=== PATIENT | female | born 1975 | race Caucasian/White ===

== ENCOUNTER 2020-06-16 16:08 | Outpatient (CLI) | payer BC, SELFPAY ==
[2020-06-16 17:17] LABS: Estmated Average Glucose 111; Hemoglobin A1C 5.5 % (4.0-6.0)
[2020-06-16 17:42] LABS: Chol HDL Ratio 4.57 mg/dL (0.0-4.40); Cholesterol 192 mg/dL (0-200); HDL Cholesterol 42 mg/dL (60-100); LDL Cholesterol Calculated 113 mg/dL (50-129); LDL HDL Ratio 2.69 RATIO (0.00-3.22); Thyroid Stimulating Hormone 1.25 uIU/mL (0.27-4.20); Triglycerides 187 mg/dL (0-150)
== END 2020-06-16 16:09 | disposition home or self-care (01) ==
LOC: LAB 16:13
PROVIDERS: Visit Provider Nurse Practitioner Family
DX: Z13.1 Encounter for screening for diabetes mellitus (principal); Z13.6 Encounter for screening for cardiovascular disorders; F41.1 Generalized anxiety disorder
CPT/HCPCS: 80061; 83036; 84443

== ENCOUNTER → 2020-09-23 11:35 | Outpatient (BNVA) | payer SELFPAY | PROVIDERS: Visit Provider Nurse Practitioner Women's Health | DX: Z12.39 Encounter for other screening for malignant neoplasm of breast (principal); Z30.49 Encounter for surveillance of other contraceptives | CPT/HCPCS: 88175 ==

== ENCOUNTER 2020-11-04 09:17 | Outpatient (CLI) | payer OTHER, SELFPAY ==
--- NOTE | 2020-11-04 09:30 | MM_ITS ---
WS: [id number] BILATERAL DIGITAL SCREENING MAMMOGRAPHY WITH CAD CLINICAL INFORMATION: Z12.39 - Encounter for other screening for malignant neoplasm of breast HISTORY: Screening mammogram. No current complaints. COMPARISON: June 12, 2019 TECHNIQUE: Bilateral CC and MLO views. FINDINGS: Scattered fibroglandular densities bilaterally. No suspicious focal mass, asymmetry, calcifications, or architectural distortion. No evidence of malignancy. A few punctate calcifications. MM/[place] [id number] IMPRESSION: BI-RADS: 2-Benign FOLLOW UP: 1 Year Follow-up Recommend return to annual screening mammography.
== END 2020-11-04 09:18 | disposition home or self-care (01) ==
LOC: RADSHAW 09:18
PROVIDERS: Visit Provider Nurse Practitioner Women's Health
DX: Z12.31 Encounter for screening mammogram for malignant neoplasm of breast (principal)
CPT/HCPCS: 77067

== ENCOUNTER 2021-11-14 12:08 | Outpatient (CLI) | payer OTHER, SELFPAY ==
--- NOTE | 2021-11-14 12:18 | MM_ITS ---
WS: [email or web address] Bilateral screening 3D tomosynthesis digital mammogram, 11/14/2021 Clinical Data: Z12.39 - Encounter for other screening for malignant neop... Comparison: 11/04/2020, 06/12/2019, 05/23/2018, 04/05/2017, 01/11/2016, 12/29/2014. Findings: The left breast is normal. In the right breast there are clustered calcifications at the 12:00 positi on 7 cm from the nipple. These calcifications were not evident a year ago and no masses associated wi th them. The breast parenchymal pattern shows fibroglandular tissue there are no secondary signs of carcinoma. Impression: 1. Clustered calcifications in the 12:00 position 7 cm from nipple in the right breast. 2. Negative left breast 3. Recommend right breast compression CC, compression MLO and ML views. MM/[place] [id number] BIRADS: 0-Incomplete: Need additional imaging evaluation FOLLOW UP: Need Additional Imaging The CAD bad cloth checker was used.
== END 2021-11-14 12:09 | disposition home or self-care (01) ==
LOC: RADSHAW 12:12
PROVIDERS: Visit Provider Nurse Practitioner Women's Health
DX: Z12.31 Encounter for screening mammogram for malignant neoplasm of breast (principal)
CPT/HCPCS: 77063; 77067

== ENCOUNTER 2021-11-22 11:53 | Outpatient (CLI) | payer MEDICAID, SELFPAY ==
--- NOTE | 2021-11-22 12:16 | MM_ITS ---
WS: [email or web address] Right breast diagnostic 3D tomosynthesis digital mammogram, 11/22/2021 Clinical Data: R92.8 - Other abnormal and inconclusive findings on diagn... Comparison: 11/04/2020 Findings: There were compression images of the right breast in the CC and MLO projections. There is a right ML projection done. There are calcifications 7 cm posterior to the nipple in approximately the 12:00 pos ition which are seen well on the compression views. They are noted on the ML view. No mass is associa pola with these calcifications. These calcifications appear to be a new development, and a biopsy is recommended. MM/[place] [id number] Impression: New calcifications in the 12:00 position of the right breast and recommend biop sy. BIRADS: 4-Suspicious Finding-Biopsy Should Be Considered FOLLOW UP: Biopsy Recommended The CAD checkering machine adjuster was used.
== END 2021-11-22 11:54 | disposition home or self-care (01) ==
LOC: RAD 11:58
PROVIDERS: PCP Family Medicine; Visit Provider Nurse Practitioner Women's Health
DX: R92.8 Other abnormal and inconclusive findings on diagnostic imaging of breast (principal); R92.1 Mammographic calcification found on diagnostic imaging of breast
CPT/HCPCS: 77061

== ENCOUNTER 2021-12-21 13:45 | Outpatient (CLI) | payer MEDICAID, SELFPAY ==
--- NOTE | 2021-12-21 13:56 | MM_ITS ---
WS: [email or web address] STEREOTACTIC RIGHT BREAST BIOPSY WITH VACUUM ASSISTANCE. History: Heterogeneous RIGHT breast calcifications. Biopsy recommended for suspicious calcifications. Procedure, risks, and complications were discussed the patient who agreed to proceed. Prior imaging w as reviewed. Cluster of calcifications within the RIGHT breast are localized. Stereotactic imaging was performed. Patient was prepped and draped in usual sterile fashion. After 1% lidocaine, calcifications were targ eted stereotactically in the RIGHT breast. Small incision was made. Needle advanced into the cluster of calcifications RIGHT breast with imaging demonstrating appropriate position relative to the calcif ications. Multiple vacuum-assisted core biopsies were obtained. Postprocedure imaging demonstrates ca lcifications within the biopsy specimen. The biopsy cavity was lavaged. Titanium clip was placed at the biopsy site. Postprocedure imaging dem onstrates clip in good position. No immediate complications. MM/[place] vac assist [id number] IMPRESSION: 1. Uncomplicated vacuum-assisted stereotactic biopsy of calcifications in the RIGHT breast. Pathology: A. Breast, right, calcifications , stereotactic biopsy: - Benign breast tissue with fibrocystic changes and microcalcifications. - No malignancy identified. Recommend 6 month RIGHT diagnostic mammographic follow-up postbiopsy BI-RADS 2 benign
--- NOTE | 2021-12-21 13:56 | MM_ITS ---
WS: [email or web address] STEREOTACTIC RIGHT BREAST BIOPSY WITH VACUUM ASSISTANCE. History: Heterogeneous RIGHT breast calcifications. Biopsy recommended for suspicious calcifications. Procedure, risks, and complications were discussed the patient who agreed to proceed. Prior imaging w as reviewed. Cluster of calcifications within the RIGHT breast are localized. Stereotactic imaging was performed. Patient was prepped and draped in usual sterile fashion. After 1% lidocaine, calcifications were targ eted stereotactically in the RIGHT breast. Small incision was made. Needle advanced into the cluster of calcifications RIGHT breast with imaging demonstrating appropriate position relative to the calcif ications. Multiple vacuum-assisted core biopsies were obtained. Postprocedure imaging demonstrates ca lcifications within the biopsy specimen. The biopsy cavity was lavaged. Titanium clip was placed at the biopsy site. Postprocedure imaging dem onstrates clip in good position. No immediate complications. MM/MM surgical specimen RT IMPRESSION: 1. Uncomplicated vacuum-assisted stereotactic biopsy of calcifications in the RIGHT breast. Pathology: A. Breast, right, calcifications , stereotactic biopsy: - Benign breast tissue with fibrocystic changes and microcalcifications. - No malignancy identified. Recommend 6 month RIGHT diagnostic mammographic follow-up postbiopsy BI-RADS 2 benign
--- NOTE | 2021-12-21 13:56 | MM_ITS ---
WS: [email or web address] STEREOTACTIC RIGHT BREAST BIOPSY WITH VACUUM ASSISTANCE. History: Heterogeneous RIGHT breast calcifications. Biopsy recommended for suspicious calcifications. Procedure, risks, and complications were discussed the patient who agreed to proceed. Prior imaging w as reviewed. Cluster of calcifications within the RIGHT breast are localized. Stereotactic imaging was performed. Patient was prepped and draped in usual sterile fashion. After 1% lidocaine, calcifications were targ eted stereotactically in the RIGHT breast. Small incision was made. Needle advanced into the cluster of calcifications RIGHT breast with imaging demonstrating appropriate position relative to the calcif ications. Multiple vacuum-assisted core biopsies were obtained. Postprocedure imaging demonstrates ca lcifications within the biopsy specimen. The biopsy cavity was lavaged. Titanium clip was placed at the biopsy site. Postprocedure imaging dem onstrates clip in good position. No immediate complications. MM/[place] [id number] IMPRESSION: 1. Uncomplicated vacuum-assisted stereotactic biopsy of calcifications in the RIGHT breast. Pathology: A. Breast, right, calcifications , stereotactic biopsy: - Benign breast tissue with fibrocystic changes and microcalcifications. - No malignancy identified. Recommend 6 month RIGHT diagnostic mammographic follow-up postbiopsy BI-RADS 2 benign
== END 2021-12-21 13:46 | disposition home or self-care (01) ==
LOC: RAD 13:49
PROVIDERS: PCP Family Medicine; Visit Provider Nurse Practitioner Women's Health
DX: R92.8 Other abnormal and inconclusive findings on diagnostic imaging of breast (principal)
CPT/HCPCS: 19081; 77065; 88305

== ENCOUNTER → 2021-12-27 10:23 | Outpatient (BNVA) | payer MEDICAID, SELFPAY | PROVIDERS: PCP Family Medicine; Visit Provider Internal Medicine | DX: R00.2 Palpitations (principal); I49.3 Ventricular premature depolarization; I49.1 Atrial premature depolarization; R00.0 Tachycardia, unspecified | CPT/HCPCS: 93225 ==

== ENCOUNTER 2022-11-27 09:42 | Outpatient (CLI) | payer MEDICAID, SELFPAY ==
--- NOTE | 2022-11-27 10:01 | MM_ITS ---
WS: [email or web address] BILATERAL 3D TOMOSYNTHESIS DIGITAL DIAGNOSTIC MAMMOGRAPHY WITH CAD CLINICAL INFORMATION: 6MFU POST BX HISTORY: Six-month post Stereotactic biopsy COMPARISON: December 21, 2021 TECHNIQUE: Bilateral CC, MLO, and ML views. FINDINGS: Scattered fibroglandular densities bilaterally. Stereotactic biopsy clip near the 12:00 position post erior depth. No new or progressed calcifications. Normal-appearing biopsy cavity. No suspicious focal mass, asymmetry, calcifications, or architectural distortion. No evidence of chen gnancy. MM/[place] [id number] IMPRESSION: BI-RADS: 2-Benign FOLLOW UP: 1 Year Follow-up Recommend return to annual screening mammography.
== END 2022-11-27 09:43 | disposition home or self-care (01) ==
LOC: RAD 09:48
PROVIDERS: PCP Family Medicine; Visit Provider Nurse Practitioner Women's Health
DX: R92.8 Other abnormal and inconclusive findings on diagnostic imaging of breast (principal)
CPT/HCPCS: 77062; G0279

== ENCOUNTER 2022-12-26 11:22 | Outpatient (CLI) | payer MEDICAID, SELFPAY ==
--- NOTE | 2022-12-26 11:39 | XR_ITS ---
WS: [email or web address] Exam: XR chest 2V* [id number] Date/Time of Exam: 12/26/2022 11:39 AM Reason For Exam: COUGH Comparison 05/12/2015. Findings: The lungs are clear and fully expanded. Costophrenic angles are sharp. No infiltrates. Bronchovascula r relief appears normal. Cardiac silhouette is unremarkable. Bony elements are intact. XR/XR chest 2V* [id number] IMPRESSION: Unremarkable chest radiograph.
== END 2022-12-26 11:23 | disposition home or self-care (01) ==
LOC: RAD 11:30
PROVIDERS: PCP Family Medicine; Visit Provider Family Medicine
DX: R05.8 Other specified cough (principal)
CPT/HCPCS: 71046

== ENCOUNTER → 2023-10-29 13:08 | Outpatient (BNVA) | payer MEDICAID, SELFPAY | PROVIDERS: PCP Family Medicine; Visit Provider Nurse Practitioner Women's Health | DX: R87.610 Atypical squamous cells of undetermined significance on cytologic smear of cervix (ASC-US) (principal) | CPT/HCPCS: 87624 ==

== ENCOUNTER 2023-12-06 08:34 | Outpatient (CLI) | payer MEDICAID, SELFPAY ==
--- NOTE | 2023-12-06 08:47 | MM_ITS ---
WS: [email or web address] BILATERAL SCREENING DIGITAL TOMOSYNTHESIS MAMMOGRAM WITH CAD HISTORY: Z12.39 - Encounter for other screening for malignant neop... COMPARISON: 11/27/2022, 11/22/2021 and 11/14/2021 Bilateral CC and MLO views with tomosynthesis and synthetic mammography submitted. Computer aided det ection analyzed. Breast composition: There are scattered areas of fibroglandular density. No suspicious masses, microc alcifications or architectural distortion. Prior biopsy clip at 12:00 RIGHT breast is unchanged in po sition. No new or suspicious calcifications. IMPRESSION: MM/[place] [id number] BI-RADS: 2-Benign FOLLOW UP: 1 Year Follow-up
== END 2023-12-06 08:35 | disposition home or self-care (01) ==
PROVIDERS: PCP Family Medicine; Visit Provider Nurse Practitioner Women's Health
DX: Z12.31 Encounter for screening mammogram for malignant neoplasm of breast (principal)
CPT/HCPCS: 77063; 77067

== ENCOUNTER → 2024-01-10 08:47 | Outpatient (BNVA) | payer MEDICAID, SELFPAY | PROVIDERS: PCP Family Medicine; Referring Provider Family Medicine; Visit Provider Physician Assistant | DX: M65.4 Radial styloid tenosynovitis [de Quervain] | CPT/HCPCS: 73130 ==

== ENCOUNTER → 2024-11-03 10:02 | Outpatient (BNVA) | payer MEDICAID, SELFPAY | PROVIDERS: PCP Family Medicine; Visit Provider Nurse Practitioner Women's Health | DX: R53.83 Other fatigue (principal); N92.0 Excessive and frequent menstruation with regular cycle | CPT/HCPCS: 82306; 82728; 83036; 83540; 84439; 84443; 85025 ==

== ENCOUNTER → 2024-11-17 08:56 | Outpatient (BNVA) | payer MEDICAID, SELFPAY | PROVIDERS: PCP Family Medicine; Visit Provider Nurse Practitioner Women's Health | DX: N92.0 Excessive and frequent menstruation with regular cycle (principal); D25.9 Leiomyoma of uterus, unspecified; R93.89 Abnormal findings on diagnostic imaging of other specified body structures; N83.202 Unspecified ovarian cyst, left side | CPT/HCPCS: 76830 ==

== ENCOUNTER 2024-12-08 08:47 | Outpatient (CLI) | payer MEDICAID, SELFPAY ==
--- NOTE | 2024-12-08 09:00 | MM_ITS ---
WS: [email or web address] VIEWS: MLO and CC views both breasts. 3D digital tomosynthesis is also included in this exam. Comparison made with prior exam of 12/29/2014, 01/11/2016, 04/05/2017, 05/23/2018, 06/12/2019, 11/04/2020, 11/14/2021, 11/22/2022, 12/06/2023.. Findings: There are scattered areas of fibroglandular density. No suspicious mass, tumor calcification or architectural distortion identified. Stereotactic biopsy marker noted at the 12 o'clock position in the RIGHT breast. MM/MM scr [place] tomosynthesis [id number] Impression: BI-RADS: 2 - Benign FOLLOW-UP: 1 Year Follow-up This mammogram was also analyzed by the Computer Aided Detection System R2 Imag e Hospice Art Therapist.
== END 2024-12-08 08:48 | disposition home or self-care (01) ==
PROVIDERS: PCP Family Medicine; Visit Provider Nurse Practitioner Women's Health
DX: Z12.31 Encounter for screening mammogram for malignant neoplasm of breast (principal); R92.323 Mammographic fibroglandular density, bilateral breasts
CPT/HCPCS: 77063; 77067

== ENCOUNTER 2025-04-29 14:13 | Outpatient (CLI) | payer MEDICAID, SELFPAY ==
--- NOTE | 2025-04-29 14:19 | XR_ITS ---
WS: [email or web address] Exam: XR foot LT min 3V* [id number] Date/Time of Exam: 04/29/2025 2:23 PM Reason For Exam: PAIN IN LEFT FOOT No fracture. The joints are preserved. No soft tissue foreign bodies. Prominent plantar heel spur. XR/XR foot LT min 3V* [id number] IMPRESSION: 1. Prominent plantar heel spur. No other significant finding.
== END 2025-04-29 14:14 | disposition home or self-care (01) ==
PROVIDERS: PCP Family Medicine; Visit Provider Family Medicine
DX: M77.32 Calcaneal spur, left foot (principal)
CPT/HCPCS: 73630

== ENCOUNTER 2025-05-31 12:49 | Outpatient (CLI) | payer MEDICAID, SELFPAY ==
--- NOTE | 2025-05-31 13:00 | MRR_ITS ---
PROCEDURE INFORMATION: Exam: MR Left Lower Extremity Other Than Joint Without and With Contrast; Foot Exam date and time: 05/31/2025 1:14 PM Age: 49 years old Clinical indication: Pain; Foot; Left; Additional info: Evaluated mass dorsal foot TECHNIQUE: Imaging protocol: Magnetic resonance imaging of the left lower extremity without and with contrast. Exam focused on the foot. Contrast material: MULTIHANCE; Contrast volume: 20 ml; Contrast route: INTRAVENOUS (IV); COMPARISON: CR XR foot LT min 3V* [id number] 04/29/2025 2:28 PM FINDINGS: There is a complex multi-septated ganglion cyst along the dorsum of the midfoot. To project dorsally from the middle-lateral cuneiform articulation. There is surrounding soft tissue edema, which may reflect partial rupture of the ganglion cyst. No findings to suggest abscess or hematoma. There is marrow edema of the middle cuneiform with periligamentous edema of the middle-lateral intercuneiform ligaments compatible with ligamentous sprain. No convincing evidence of fracture or ligamentous disruption. Lisfranc ligament is intact. CT may be helpful for greater bony detail if warranted (ie to exclude subtle cortical avulsion). Remainder of the hindfoot, midfoot and forefoot is intact. Prominent plantar calcaneal spur with thickening of the central cord of the plantar fascia. Very mild fascial edema. No significant marrow edema of the spur. MR/MR foot LT wo/w con [id number] IMPRESSION: 1. Complex septated ganglion cyst along the dorsum of the midfoot with soft tissue edema, possibly reflecting partial rupture. 2. Findings compatible with midfoot sprain with marrow edema of the middle cuneiform.
[2025-05-31] MEDS: gadobenate dimeglumine 20 mL vial IV (13:58)
== END 2025-05-31 12:50 | disposition home or self-care (01) ==
LOC: RAD 12:52
PROVIDERS: PCP Family Medicine; Visit Provider Podiatrist Foot & Ankle Surgery
DX: M67.472 Ganglion, left ankle and foot (principal)
CPT/HCPCS: 73720